=== PATIENT | male | born 2000 | race Hispanic/Latino ===

== ENCOUNTER 2022-06-20 16:06 | Emergency (ER) | payer SELFPAY ==
[2022-06-20] MEDS ORDERED: Proparacaine 0.5% Opth 15 ML BOT ONE (16:33)
[2022-06-20] MEDS ORDERED: Fluorescein Opthalmic Strip ONE (16:33)
[2022-06-20] MEDS ORDERED: HYDROcodone/Acetaminophen 5/325 mg Tablet ONE (17:42)
== END 2022-06-20 17:55 | disposition home or self-care (01) ==
LOC: ERS 16:06
DX: S05.12XA Contusion of eyeball and orbital tissues, left eye, initial encounter (principal); W20.8XXA Other cause of strike by thrown, projected or falling object, initial encounter; Y93.66 Activity, soccer
CPT/HCPCS: 99283